=== PATIENT | male | born 1930 | race Caucasian/White ===

== ENCOUNTER 2022-03-27 03:50 | Inpatient (IN) | payer OTHER, MEDICARE, BC ==
[~2022-03-27] VITALS: Ht 175.3 cm; Wt 81.7 kg
[~2022-03-27 03:50] MED LIST: ASCO250CH PO; ASCO500 PO; ASPI325 PO; Aspir 8181 MG PO; CLOP75 PO; ESOM20 PO; FERR325 PO; PRED10 PO; PRED5 PO
[2022-03-27 04:35] LABS: BASOPHILS ABSOLUTE AUTO 0.01 K/mm3 (0.00-0.23); BASOPHILS PERCENT AUTO 0 % (0-2); EOSINOPHILS ABSOLUTE AUTO 0.01 K/mm3 (0.00-0.68); EOSINOPHILS PERCENT AUTO 0 % (0-6); Hematocrit 38.2 % (37.0-53.0); Hemoglobin 12.7 g/dL (13.5-17.5); IMMATURE GRAN ABSOLUTE AUTO 0.09 K/mm3 (0.00-0.10); IMMATURE GRAN PERCENT AUTO 1 % (0-1); LYMPHOCYTES ABSOLUTE AUTO 0.63 K/mm3 (0.84-5.20); LYMPHOCYTES PERCENT AUTO 6 % (21-46); MONOCYTES ABSOLUTE AUTO 1.35 K/mm3 (0.16-1.47); MONOCYTES PERCENT AUTO 12 % (4-13); Mean Corpuscular HGB 31.7 pg (26.0-34.0); Mean Corpuscular HGB Conc 33.2 g/dL (31.5-36.5); Mean Corpuscular Volume 95 fL (80-100); Mean Platelet Volume 11.6 fL (9.1-12.4); NEUTROPHILS ABSOLUTE AUTO 8.86 K/mm3 (1.96-9.15); NEUTROPHILS PERCENT AUTO 81 % (41-73); Platelet Count 142 K/mm3 (150-400); RDW Coefficient Variation 15.3 % (11.7-14.2); RDW Standard Deviation 54.1 fL (35.1-46.3); Red Blood Cell Count 4.01 M/mm3 (4.30-5.90); White Blood Cell Count 10.95 K/mm3 (4.00-11.30)
[2022-03-27 05:06] LABS: Albumin, Blood 3.4 g/dL (3.4-5.0); Albumin/Globulin Ratio 0.8 (0.8-1.8); Bilirubin, Total 0.6 mg/dL (0.1-1.0); Bun/Creatinine Ratio 12.1 (12.0-20.0); Calcium, Blood 8.9 mg/dL (8.5-10.1); Creatinine, Blood 1.49 mg/dL (0.60-1.20); Total Protein, Blood 7.4 g/dL (6.4-8.2)
[2022-03-27 05:36] LABS: Creatine Kinase MB Index 1.4 (0.0-4.0)
[2022-03-27 07:10] LABS: CHOL/HDL RATIO 4.6; Cholesterol 179 mg/dL (50-200); HDL Cholesterol 39 mg/dL (>39); Low Density Lipoprotein Chol 117 mg/dL (0-110); Triglycerides 115 mg/dL (30-160); Very Low Density Lipoprot Chol 23 mg/dL (6-32)
--- NOTE | 2022-03-27 08:18 | NUR ---
Pt arrived to 327 via gurney from ER, he is a/ox3, pleasant and cooperative with care, follows commands well, reports soreness all over, a bit of mid sternal chest pain, he states not too bad, lungs are clear in upper almodovar, dim in bases, resp even and unlabored, currently on 2 liters, is home 02 dep on 2 liters, no cough noted, hrr, has a dual chamber pacer, running sr per ekg, no edema noted, ppp +1, cap refill >3sec, hands are dusky, iv site is clear and patent, s.l. btx4, abd flat soft nontender, voids without diff, skin c/w/d, abrasion to head, bull, call light in reach.
[2022-03-27] MEDS ORDERED: Prinivil10 MG PO (13:16)
[2022-03-27] MEDS ORDERED: METO50ER PO (13:16)
[2022-03-27] MEDS ORDERED: OMEP20ER PO (13:18)
--- NOTE | 2022-03-27 18:47 | NUR ---
pt is a two person to transfer to chair, reports his left hip hurts, but has been hurting, able to bare weight, just needs help getting to standing position then shuffles to chair, new iv placed to lfa as the other is constantly stopped from him bending his arm, no further changes this shift.
--- NOTE | 2022-03-28 01:15 | NUR ---
[employer] REPORTED A RUN OF V TACH - SOME 15 BEATS. UPON VISUAL ASSESSMENT. ASYMPTOMATIC. RSTING QUIETLY. WILL CONTINUE TO MONITOR
--- NOTE | 2022-03-28 03:49 | NUR ---
RECOVERER SUMMARY VSS. AWAKE AT INTERVALS. ASSISTED UP TO CHAIR PER REQUEST, HOWEVER, AFTER A FEW HOURS, WANTED TO GO BACK TO BED. VOICED FELT UNCOMFORTABLE. IVF INFUSING. HAS BEEN RESTING QUIETLY SINCE BEING BACK IN BED. MED TELE OCCASIONAL RUN OF V TACH - SEE TELE STRIPS. ASYMPTOMATIC. CALL LIGHT IN REACH. WILL CONTINUE TO MONITOR
[2022-03-28 09:17] LABS: BASOPHILS ABSOLUTE AUTO 0.03 K/mm3 (0.00-0.23); BASOPHILS PERCENT AUTO 0 % (0-2); EOSINOPHILS ABSOLUTE AUTO 0.09 K/mm3 (0.00-0.68); EOSINOPHILS PERCENT AUTO 1 % (0-6); Hemoglobin 11.8 g/dL (13.5-17.5); IMMATURE GRAN ABSOLUTE AUTO 0.05 K/mm3 (0.00-0.10); IMMATURE GRAN PERCENT AUTO 1 % (0-1); LYMPHOCYTES ABSOLUTE AUTO 1.49 K/mm3 (0.84-5.20); LYMPHOCYTES PERCENT AUTO 20 % (21-46); MONOCYTES ABSOLUTE AUTO 0.82 K/mm3 (0.16-1.47); MONOCYTES PERCENT AUTO 11 % (4-13); Mean Corpuscular HGB 30.6 pg (26.0-34.0); Mean Corpuscular HGB Conc 31.1 g/dL (31.5-36.5); Mean Corpuscular Volume 99 fL (80-100); Mean Platelet Volume 12.2 fL (9.1-12.4); NEUTROPHILS ABSOLUTE AUTO 4.98 K/mm3 (1.96-9.15); NEUTROPHILS PERCENT AUTO 67 % (41-73); Platelet Count 118 K/mm3 (150-400); RDW Coefficient Variation 15.5 % (11.7-14.2); RDW Standard Deviation 56.1 fL (35.1-46.3); Red Blood Cell Count 3.85 M/mm3 (4.30-5.90); White Blood Cell Count 7.46 K/mm3 (4.00-11.30)
[2022-03-28 09:46] LABS: Bun/Creatinine Ratio 14.9 (12.0-20.0); Calcium, Blood 8.1 mg/dL (8.5-10.1); Creatinine, Blood 1.34 mg/dL (0.60-1.20); Magnesium, Blood 2.4 mg/dL (1.6-2.4); Phosphorus, Blood 2.3 mg/dL (2.5-4.9); Potassium, Blood 4.7 mmol/L (3.5-5.5)
--- NOTE | 2022-03-28 18:46 | NUR ---
SHIFT SUMMARY: NO ACUTE EVENTS. NO EVENTS ON TELEMETRY, V PACED IN THE 60'S. DENIED CHEST DISCOMFORT. WEARING O2 @ 2 L/MIN NC; PT STATED HE HAS OXYGEN AT HOME, BUT DOESN'T USE IT. APPETITE OK. GETTING UP TO RECLINER WITH 1 PERSON ASSIST, GAIT BELT, AND FWW, WEAK IN BLE. ENCOURAGED PO FLUID INTAKE TO KEEP THICK SECRETIONS LOOSENED.
--- NOTE | 2022-03-28 23:32 | NUR ---
TELE CALLED EARLIER, PT HAD RUN OF TRIGEMINY. ASYMPTOMATIC. SLEEPING. CALL LIGHT IN REACH. WILL CONTINUE TO MONITOR
--- NOTE | 2022-03-29 03:58 | NUR ---
RADIOLOGIC THERAPIST SUMMARY VSS. ASSISTED TO BED AT WITH 2 PERSON ASSIST. HAS BEEN RESTING INTERMITTENTLY WITH FEW INTERRUPTIONS. MED TELE REPORTED A RUN OF TRIGEMINY BUT PT ASYMPTOMATIC AND NO S/S ACUTE DISTRESS NOTED. O2 AT 2L/MIN PER NC. NO C/O VOICED. CALL LIGHT IN REACH. WILL CONTINUE TO MONITOR
[2022-03-29 05:24] LABS: Hematocrit 35.9 % (37.0-53.0); Hemoglobin 11.6 g/dL (13.5-17.5); Mean Corpuscular HGB 31.9 pg (26.0-34.0); Mean Corpuscular HGB Conc 32.3 g/dL (31.5-36.5); Mean Corpuscular Volume 99 fL (80-100); Mean Platelet Volume 11.8 fL (9.1-12.4); Platelet Count 118 K/mm3 (150-400); RDW Coefficient Variation 15.3 % (11.7-14.2); RDW Standard Deviation 55.7 fL (35.1-46.3); Red Blood Cell Count 3.64 M/mm3 (4.30-5.90); White Blood Cell Count 7.36 K/mm3 (4.00-11.30)
[2022-03-29 05:55] LABS: Thyroid Stimulating Hormone 2.03 uIU/mL (0.360-4.800)
[2022-03-29 06:04] LABS: Albumin/Globulin Ratio 0.9 (0.8-1.8); Bilirubin, Total 0.5 mg/dL (0.1-1.0); Calcium, Blood 8.2 mg/dL (8.5-10.1); Creatinine, Blood 1.28 mg/dL (0.60-1.20); Globulin, Blood 3.5 g/dL (2.2-4.0); Potassium, Blood 4.8 mmol/L (3.5-5.5); Total Protein, Blood 6.5 g/dL (6.4-8.2)
[2022-03-29 06:22] LABS: Creatine Kinase MB 11.2 ng/mL (0.0-3.6); Creatine Kinase MB Index 0.6 (0.0-4.0)
--- NOTE | 2022-03-29 19:22 | NUR ---
SHIFT SUMMARY: NO ACUTE EVENTS. NO EVENTS ON TELEMETRY, AV PACED IN 60-70'S. DENIED PAIN. ON O2 @ 2 L/MIN NC O2 SAT ON ROOM AIR DROPS TO MID 80'S AT REST. HAS OXYGEN AT HOME BUT DOES NOT USE IT. WORKED WITH PT/OT. NEIGHBOR ANNEL CAME TO VISIT, IS WATCHING PT'S DOG. PATIENT HAS ASKED HIS SON TO COME TO HELP CARE FOR HIM AT HOME INSTEAD OF HIM GOING TO SNF. APPETITE OK.
--- NOTE | 2022-03-30 05:40 | NUR ---
PT STATED TO BE RUNNING LOW-GRADE FEVER THIS MORNING AND HAVING INCREASED WEAKNESS. UNABLE TO STAND UP OUT OF BED EVEN WITH ASSISTANCE OF TWO PEOPLE. BILATERAL LUNGS COARSE CRACKLES. CALL TO DR MAXWELL: ORDERS FOR CXR-1V, APAP 650 Q6H PRN AND CK DRAW. WILL CONSIDER ADDITION OF FLUIDS.
[2022-03-30 05:58] LABS: Hematocrit 35.5 % (37.0-53.0); Hemoglobin 11.3 g/dL (13.5-17.5); Mean Corpuscular HGB 31.3 pg (26.0-34.0); Mean Corpuscular HGB Conc 31.8 g/dL (31.5-36.5); Mean Corpuscular Volume 98 fL (80-100); Mean Platelet Volume 11.8 fL (9.1-12.4); Platelet Count 124 K/mm3 (150-400); RDW Coefficient Variation 14.8 % (11.7-14.2); RDW Standard Deviation 53.7 fL (35.1-46.3); Red Blood Cell Count 3.61 M/mm3 (4.30-5.90); White Blood Cell Count 7.59 K/mm3 (4.00-11.30)
[2022-03-30 06:36] LABS: Albumin, Blood 3.1 g/dL (3.4-5.0); Albumin/Globulin Ratio 0.8 (0.8-1.8); Bilirubin, Total 0.8 mg/dL (0.1-1.0); Bun/Creatinine Ratio 20.4 (12.0-20.0); Calcium, Blood 8.5 mg/dL (8.5-10.1); Creatinine, Blood 1.37 mg/dL (0.60-1.20); Globulin, Blood 3.8 g/dL (2.2-4.0); Potassium, Blood 4.8 mmol/L (3.5-5.5); Total Protein, Blood 6.9 g/dL (6.4-8.2)
[2022-03-30 08:30] LABS: Percent Saturation 20.5 % (20.0-50.0)
[2022-03-30 08:51] LABS: Thyroid Stimulating Hormone 1.96 uIU/mL (0.360-4.800); Triiodothyronine, Free 1.81 pg/mL (2.18-3.98)
--- NOTE | 2022-03-30 15:55 | NUR ---
PT IS A/OX3, PLEASANT AND COOPERATIVE. THE PT WAS VERY DROWSY THIS AM , HOWEVER WAS ABLE TO WAKE UO AND WAS ABLE TO STAND AND TRANSFERE TO THE CHAIR THIS AM USEING THE FWW. THE PTS HAS AN OCCASIONAL MOIST COUGH. THE PT WAS ENCOURAED TO USE THE FLUTTER VALVE PROVIDED AT THE BEDSIDE. THE PT WORKED WITH BOTH THE PHYSICAL AND OCCUPATIONAL THERAPIST THIS AM. THE PT DENIED ANY PAIN. CALL LIGHT IN REACH. WILL CONTINUE TO MONITOR AND ASSESS FOR CHANGES
--- NOTE | 2022-03-31 05:33 | NUR ---
Shift Summary Pt slept well t/o most of the night with occasional wet hacking cough. Secretions are heard in all lobes as rhochi. Pt woke up too hot and took his gown off, removing his telemetry leads and O2. He desaturated down to 70 without O2 and I raised his O2 to 4L to get him above 90% saturation. Later pt woke up confused wanting to 'get out of here' and he coulden't say where he was. After being reoriented pt went back to sleep. No acute events, pt cooperative with care.
[2022-03-31 08:10] LABS: Bun/Creatinine Ratio 21.8 (12.0-20.0); Creatinine, Blood 1.42 mg/dL (0.60-1.20)
--- NOTE | 2022-03-31 17:46 | NUR ---
SHIFT SUMMARY NO ACUTE CHANGES DURING SHIFT. PT ALERT AND ORIENTED, CALLS APPROPRIATELY, OCCASIONAL MOMENTS OF CONFUSION. PT REMAINS ON 4L NC, SPO2 > 90%. PT UP OOB TO CHAIR AND BATHROOM TODAY USING FWW. PLAN FOR IV DIURETICS. PT PENDING PLACEMENT AT FACILITY. WILL CONTINUE TO MONITOR. CALL LIGHT WITHIN REACH
[2022-04-01 05:44] LABS: Albumin, Blood 2.9 g/dL (3.4-5.0); Albumin/Globulin Ratio 0.7 (0.8-1.8); Bilirubin, Total 0.7 mg/dL (0.1-1.0); Bun/Creatinine Ratio 22.3 (12.0-20.0); Creatinine, Blood 1.3 mg/dL (0.60-1.20); Potassium, Blood 4.3 mmol/L (3.5-5.5); Total Protein, Blood 6.9 g/dL (6.4-8.2)
--- NOTE | 2022-04-01 06:08 | NUR ---
Shift Summary Pt has had increasing sensation of SoB, and increasing O2 needs to stay above 90% saturation. Now on 6L up from 4L to maintane saturation. Called hospitalist who ordered 40 mg Lasix one time to clear lung fluids and continuous biox. Pt is incont of urine, attempted to place condom catheter which pt pulled off shortly after placement. Pt awakes confused and wants to get out of bed, feeling trapped by telemetry wires. Pt is able to be re-oriented. Lung sounds are starting to clear up with less audible secretions after Lasix dose, pt states SoB also improving but says his mouth is very dry.
[2022-04-01 09:48] LABS: SARS-Cov-2 (COVID-19) PCR, MMC NEGATIVE (NEGATIVE)
--- NOTE | 2022-04-01 16:44 | NUR ---
SHIFT SUMMARY PT HAS BEEN SLEEPING OFF AND ON ALL SHIFT. HIS DAUGHTER CALLS FREQUENTLY TO CHECK ON HIM. HIS DAUGHTER INFORMED ME THAT HE HAS MINIMAL TEETH AND PREFERS TO EAT SOFT FOOD. THE REQUEST WAS COMMUNICATED TO THE KITCHEN. A CONDOM CATHETER WAS APPLIED BUT DID NOT HOLD SO IT WAS REMOVED AND HE CONTINUES TO USE BRIEFS. THE PROVIDER IMPLEMENTED A 1800 ML FLUID RESTRICTION. HE WAS ALSO TESTED FOR COVID AND IT WAS NEGATIVE. PT CONTINUES TO FOLLOW DIRECTIONS BUT DO NOT USE THE CALL LIGHT OFTEN.
--- NOTE | 2022-04-02 03:29 | NUR ---
PT ADMITTED FOR [facility] HAS GENERALIZED WEAKNESS THROUGHOUT. VS STABLE PT IS ON 6L O2 VIA NC WITH CONTINOUS PULSE OX >90%. PT HAS BEEN INCONTINENT OF URINE X 3. INCONTINENCE WRAP UTILIZED PROTECT SKIN INTEGRITY. PT HAS PROBABLE STAGE 1 PRESSURE ULCER ON COCCYX. ORANGE TOP BARRIER CREAM AND MEPILIEX DRESSING APPLIED. DURING NIGHT PT HAD SOME CONFUSION AND STATED THAT HE WAS TRAPPED IN BED AND WANTED TO GET OUT OF HIS UNIFORM. PT WAS OFFERED A WARM BLANKET AND REMOVAL OF GOWN FOR REDIRECTION. PT IS CURRENTLY RESTING WITH BED ALARM ON, 3 BED RAILS UP, BED IN LOWEST POSITION, AND CALL LIGHT WITHIN REACH. PT IS AWAITING DISCHARGE TO SNF ON 04/02/22.
[2022-04-02 08:41] LABS: Hematocrit 42.8 % (37.0-53.0); Hemoglobin 13.6 g/dL (13.5-17.5); Mean Corpuscular HGB 30.9 pg (26.0-34.0); Mean Corpuscular HGB Conc 31.8 g/dL (31.5-36.5); Mean Corpuscular Volume 97 fL (80-100); Mean Platelet Volume 11.9 fL (9.1-12.4); Platelet Count 174 K/mm3 (150-400); RDW Coefficient Variation 14.2 % (11.7-14.2); White Blood Cell Count 6.68 K/mm3 (4.00-11.30)
[2022-04-02 09:09] LABS: Albumin, Blood 3.4 g/dL (3.4-5.0); Albumin/Globulin Ratio 0.7 (0.8-1.8); Bun/Creatinine Ratio 20.7 (12.0-20.0); Calcium, Blood 10.1 mg/dL (8.5-10.1); Creatinine, Blood 1.35 mg/dL (0.60-1.20); Potassium, Blood 3.8 mmol/L (3.5-5.5); Total Protein, Blood 8.4 g/dL (6.4-8.2)
--- NOTE | 2022-04-03 04:10 | NUR ---
PT ADMITTED FOR [facility] 03/29/22. PT A/OX4. EVENING METOPROLOL NOT GIVEN FOR BP 106/55 AND HR 58. PT ON TELE PACED IN 60'S PT HAD A FEW RUNS OF VTACH AND A RUN OF SVT THAT LASTED 13 SECONDS. PT WAS ASYMPTOMATIC. PT IS ON 6L NC AND HAS EPISODES OF APNEA AND DESATURATES FROM 92% TO 79%. PT IS STILL A 2PA FROM DECONDITIONING. PT WAS INCONTINENT OF URINE X 3. PT MEPILEX DRESSING ON COCCYX WAS REPLACED DURING SHIFT. PT D/C TO SNF DELAYED DUE TO R[facility] PNA. PT TAKING ABX. PT IS CURRENTLY RESTING WITH BED RAILS UP, BED IN LOWEST POSITION, AND CALL LIGHT WITHIN REACH.
[2022-04-03 05:19] LABS: Hematocrit 39.5 % (37.0-53.0); Mean Corpuscular HGB 31.6 pg (26.0-34.0); Mean Corpuscular HGB Conc 32.9 g/dL (31.5-36.5); Mean Corpuscular Volume 96 fL (80-100); Mean Platelet Volume 11.6 fL (9.1-12.4); Platelet Count 160 K/mm3 (150-400); RDW Standard Deviation 49.5 fL (35.1-46.3); Red Blood Cell Count 4.11 M/mm3 (4.30-5.90)
[2022-04-03 05:43] LABS: Bun/Creatinine Ratio 25.4 (12.0-20.0); Calcium, Blood 9.4 mg/dL (8.5-10.1); Creatinine, Blood 1.38 mg/dL (0.60-1.20); Magnesium, Blood 2.1 mg/dL (1.6-2.4); Potassium, Blood 3.3 mmol/L (3.5-5.5)
[2022-04-03 09:45] LABS: Bun/Creatinine Ratio 24.6 (12.0-20.0); Calcium, Blood 9.1 mg/dL (8.5-10.1); Creatinine, Blood 1.34 mg/dL (0.60-1.20); Potassium, Blood 3.8 mmol/L (3.5-5.5)
--- NOTE | 2022-04-03 18:21 | NUR ---
SHIFT SUMMARY PT A&OX4 AND COOPERATIVE WITH CARE. PT HAD POTASSIUM INFUSING IN AM. TOLERATED WELL WITH SOME C/O OF PAIN. ADJUSMENTS MADE TO THE NS INFUSION RATE. PT WORKED WITH OT AND PT. ABLE TO GET UP TO CHAIR AND TOLERATED WELL. PT STATED IT "FEELS GOOD TO BE IN THE CHAIR". DESATES WITH ACTIVITY. PT USES CALL LIGHT APPROPRIATELY. NO C/O PAIN. INCONTINENT BUT ABLE TO VERBALIZE WHEN HE IS SOILD. PT RESTING IN CHAIR WITH CALL LIGHT IN REACH.
--- NOTE | 2022-04-04 04:05 | NUR ---
SHIFT SUMMARY NOC PT HERE FOR [facility] AND NOW [facility] PNA. PT A/OX3. VSS. PT ON TELE AND HAS APM PACED IN 60'S. PT IS ON 6L/NC WITH O2 IN 90%-92%. PT WAS INCONTINENT OF URINE X 2, AND INC BM X 1. PT HAD TWO EPISODES DURING SHIFT OF TANGLING SELF UP IN BLANKET AND REMOVING BIOX AND NC AND O2 LEVELS DROPPED TO 70'S. PT WAS ASYMPTOMATIC AND O2 WAS TITRATED TO 8L TO GET BACK TO >90%. MEPILEX DRESSING ON COCCYX WAS REPLACED WITH BARRIER CREAM UNDERNEATH. PT HAS IV INFUSING NS TKO 25MLS/HR. PT IS CURRENTLY RESTING WITH BED RAILS UP, BED IN LOWEST POSITION, AND CALL LIGHT WITHIN REACH.
[2022-04-04 08:45] LABS: Bun/Creatinine Ratio 27.1 (12.0-20.0); Calcium, Blood 9.1 mg/dL (8.5-10.1); Creatinine, Blood 1.4 mg/dL (0.60-1.20); Potassium, Blood 3.8 mmol/L (3.5-5.5)
[2022-04-04] MEDS ORDERED: ACET325 PO (11:34)
[2022-04-04] MEDS ORDERED: FURO20 PO (11:35)
[2022-04-04] MEDS ORDERED: CEFD300 PO (11:36)
[2022-04-04] MEDS ORDERED: GUAI600T33 PO (11:36)
[2022-04-04] MEDS ORDERED: SPIR25 PO (11:37)
[2022-04-04 12:24] LABS: SARS-Cov-2 (COVID-19) PCR, MMC NEGATIVE (NEGATIVE)
--- NOTE | 2022-04-04 13:46 | NUR ---
Discharge Summary A/Ox3, pleasant/cooperative. Incontinent, 2p assist with FWW and gaitbelt. Tele: Paced with pvc's. Discharging to [facility]. Report called to receiving nurse Hugo. Personal belongings will be sent home. Currently on 6L O2 via NC. Attempted to titrate down to 5L, but patient desat to 87% while eating breakfast. Up in chair for lunch. Worked with PT/OT.
== END 2022-04-04 14:08 | DRG 557 ==
LOC: ER 03:50 → MEDS 05:33
PROVIDERS: Emergency Medicine; Internal Medicine; Student in an Organized Health Care Education/Training Program; ADMIT Family Medicine
DX: M62.82 Rhabdomyolysis (principal); I21.A1 Myocardial infarction type 2; I50.33 Acute on chronic diastolic (congestive) heart failure; J18.9 Pneumonia, unspecified organism; I13.0 Hypertensive heart and chronic kidney disease with heart failure and stage 1 through stage 4 chronic kidney disease, or unspecified chronic kidney disease; N17.9 Acute kidney failure, unspecified; J44.0 Chronic obstructive pulmonary disease with (acute) lower respiratory infection; I25.10 Atherosclerotic heart disease of native coronary artery without angina pectoris; I27.20 Pulmonary hypertension, unspecified; Z66 Do not resuscitate; G70.00 Myasthenia gravis without (acute) exacerbation; N18.30 Chronic kidney disease, stage 3 unspecified; D63.1 Anemia in chronic kidney disease; D69.6 Thrombocytopenia, unspecified; E78.00 Pure hypercholesterolemia, unspecified; Z20.822 Contact with and (suspected) exposure to COVID-19; Z95.1 Presence of aortocoronary bypass graft; Z87.19 Personal history of other diseases of the digestive system; Z95.0 Presence of cardiac pacemaker; V84.9XXA Unspecified occupant of special agricultural vehicle injured in nontraffic accident, initial encounter; Z88.0 Allergy status to penicillin; Z88.8 Allergy status to other drugs, medicaments and biological substances; Z98.890 Other specified postprocedural states; Z88.1 Allergy status to other antibiotic agents; Z79.82 Long term (current) use of aspirin; Z79.899 Other long term (current) drug therapy; Z79.52 Long term (current) use of systemic steroids; Z87.891 Personal history of nicotine dependence
CPT/HCPCS: 36415; 71045; 71260; 80048; 80053; 80061; 82533; 82550; 82553; 82607; 82728; 82746; 83519; 83540; 83550; 83735; 83880; 84100; 84443; 84481; 84484; 85025; 85027; 85379; 85651; 86140; 93005; 93010; 93306; 94640; 94760; 94762; 96372; 97110; 97116; 97162; 97166; 97530; 97535; 99285-25; A9270; G0378; J0692; J1650; J1940; J3480; J7030; J7050; Q9967; U0004